=== PATIENT | male | born 1970 | race Caucasian/White ===

== ENCOUNTER 2018-06-24 11:32 | Emergency (ER) | payer BC, OTHER ==
[2018-06-24] MEDS ORDERED: predniSONE 20 MG TAB ONE (12:28)
[2018-06-24] MEDS ORDERED: DIPHENHYDRAMINE 25 MG TAB/CAP ONE (12:28)
--- NOTE | 2018-06-24 12:34 | EDPHYS ---
Physician Documentation [facility] Name: Francisco Zamora Age: 48 yrs Sex: Male : 1970 Arrival Date: 06/24/2018 Time: 11:35 Bed 11 Private MD: Delta Can ED Physician Dane Sawant HPI: 06/24 14:19 This 48 yrs old Male presents to ER via Ambulatory with complaints of Insect gs Bite. 14:19 the patient presents with a swollen area of the right tricep. Description: The affected gs area is approximately 5 cm(s), erythematous, raised. Onset: The symptoms/episode began/occurred gradually, just prior to arrival. Possible cause(s): bee sting, insect sting. Associated signs and symptoms: Pertinent positives: itching,burning. Modifying factors: the symptoms are alleviated by nothing, the symptoms are aggravated by nothing. Severity of symptoms: At their worst the symptoms were moderate, in the emergency department the symptoms are unchanged. The patient has not experienced similar symptoms in the past. Historical: - Allergies: 11:44 No Known Allergies; hb - Home Meds: 11:44 lisinopril 10 mg Oral tab 1 tab once daily [Active]; hb - PMHx: 11:44 Hypertension; hb - PSHx: 11:44 Appendectomy; hb - Immunization history:: Adult Immunizations up to date. - Social history:: Smoking status: Patient/guardian denies using tobacco. - Ebola Screening: : No symptoms or risks identified at this time. ROS: 14:19 All other systems are negative. gs Exam: 14:19 Head/Face: Normocephalic, atraumatic. Chest/axilla: Normal chest wall appearance and gs motion. Nontender with no deformity. No lesions are appreciated. Cardiovascular: Regular rate and rhythm with a normal S1 and S2. No gallops, murmurs, or rubs. Normal PMI, no JVD. No pulse deficits. Respiratory: Lungs have equal breath sounds bilaterally, clear to auscultation and percussion. No rales, rhonchi or wheezes noted. No increased work of breathing, no retractions or nasal flaring. Abdomen/GI: Soft, non-tender, with normal bowel sounds. No distension or tympany. No guarding or rebound. No evidence of tenderness throughout. Back: No spinal tenderness. No costovertebral tenderness. Full range of motion. MS/ Extremity: Pulses equal, no cyanosis. Neurovascular intact. Full, normal range of motion. Neuro: Awake and alert, GCS 15, oriented to person, place, time, and situation. Cranial nerves II-XII grossly intact. Motor strength 5/5 in all extremities. Sensory grossly intact. Cerebellar exam normal. Normal gait. 14:19 Constitutional: The patient appears in no acute distress, alert, awake. 14:19 Skin: lesion(s), noted, and can be described as erythematous, raised, located on the right tricep. Vital Signs: 11:44 BP 122 / 88; Pulse 67; Resp 16; Temp 98; Pulse Ox 96% on R/A; Weight 112.04 kg; Height hb 5 ft. 11 in. (180.34 cm); Pain 5/10; 11:44 Body Mass Index 34.45 (112.04 kg, 180.34 cm) hb MDM: 12:11 Patient medically screened. 14:19 Differential diagnosis: insect bite. Data reviewed: vital signs, nurses notes. Counseling: I had a detailed discussion with the patient and/or guardian regarding: the historical points, exam findings, and any diagnostic results supporting the discharge/admit diagnosis, the need for outpatient follow up. Response to treatment: the patient's symptoms have mildly improved after treatment. Administered Medications: 12:18 Drug: predniSONE 40 mg Route: PO; 12:18 Drug: Benadryl 25 mg Route: PO; Disposition: 06/24/18 12:33 Discharged to Home. Impression: Insect bite (nonvenomous) of right upper arm. - Condition is Stable. - Prescriptions for Zyrtec 10 mg Oral Tablet - take 1 tablet by ORAL route once daily As needed; 20 tablet. Triamcinolone Acetonide 0.5 % Topical Cream - apply 1 application by TOPICAL route 2 times per day As needed; 1 tube. - Medication Reconciliation Form, Thank You Letter, Antibiotic Education, Prescription Opioid Use form. - Follow up: Private Physician; When: 2 - 3 days; Reason: Re-evaluation by your physician. Signatures: Shyam Conway RN RN sg Adelina Russo RN RN Dane Sawant MD MD Corrections: (The following items were deleted from the chart) 12:43 12:33 06/24/2018 12:33 Discharged to Home. Impression: Insect bite (nonvenomous) of hb right upper arm. Condition is Stable. Forms are Medication Reconciliation Form, Thank You Letter, Antibiotic Education, Prescription Opioid Use. Follow up: Private Physician; When: 2 - 3 days; Reason: Re-evaluation by your physician. gs
--- NOTE | 2018-06-24 12:34 | ER ---
Nurse's Notes [facility] Name: Francisco Zamora Age: 48 yrs Sex: Male : 1970 Arrival Date: 06/24/2018 Time: 11:35 Bed 11 Private MD: Delta Can Diagnosis: Insect bite (nonvenomous) of right upper arm Presentation: 06/24 11:43 Presenting complaint: Stung bu unknown insect on right upper arm approx 30 minutes ago, hb c/o itching and burning at site. Transition of care: patient was not received from another setting of care. Onset of symptoms was June 24, 2018. Risk Assessment: Do you want to hurt yourself or someone else? Patient reports no desire to harm self or others. Initial Sepsis Screen: Does the patient meet any 2 criteria? No. Patient's initial sepsis screen is negative. Does the patient have a suspected source of infection? No. Patient's initial sepsis screen is negative. Care prior to arrival: None. 11:43 Method Of Arrival: Ambulatory hb 11:43 Acuity: THOMAS 4 hb Historical: - Allergies: 11:44 No Known Allergies; hb - Home Meds: 11:44 lisinopril 10 mg Oral tab 1 tab once daily [Active]; hb - PMHx: 11:44 Hypertension; hb - PSHx: 11:44 Appendectomy; hb - Immunization history:: Adult Immunizations up to date. - Social history:: Smoking status: Patient/guardian denies using tobacco. - Ebola Screening: : No symptoms or risks identified at this time. Screenin:10 Abuse screen: Denies threats or abuse. Denies injuries from another. Nutritional sg screening: No deficits noted. Tuberculosis screening: No symptoms or risk factors identified. Never had TB. Fall Risk None identified. Assessment: 12:18 General: Appears in no apparent distress. well groomed, well developed, well nourished, sg Behavior is calm, cooperative, appropriate for age. Pain: Complains of pain in right bicep Quality of pain is described as aching, itching. Neuro: Level of Consciousness is awake, alert, obeys commands, Oriented to person, place, time, Air Pollution Analyst are equal bilaterally Moves all extremities. Full function. Cardiovascular: Capillary refill is brisk in bilateral fingers Patient's skin is warm and dry. Chest pain is denied. Respiratory: Airway is patent Respiratory effort is even, unlabored, Respiratory pattern is regular, symmetrical. GI: Abdomen is round non-distended. : No signs and/or symptoms were reported regarding the genitourinary system. EENT: No signs and/or symptoms were reported regarding the EENT system. Derm: Skin is intact, is healthy with good turgor, Skin is pink, warm \T\ dry. Skin temperature is warm Reports itching. Musculoskeletal: No signs and/or symptoms reported regarding the musculoskeletal system. Vital Signs: 11:44 BP 122 / 88; Pulse 67; Resp 16; Temp 98; Pulse Ox 96% on R/A; Weight 112.04 kg; Height hb 5 ft. 11 in. (180.34 cm); Pain 5/10; 11:44 Body Mass Index 34.45 (112.04 kg, 180.34 cm) hb ED Course: 11:35 Patient arrived in ED. tw3 11:36 Delta Can MD is Private Physician. tw3 11:44 Triage completed. hb 11:44 Arm band placed on. hb 11:49 Dane Sawant MD is Attending Physician. gs 12:00 Patient has correct armband on for positive identification. Bed in low position. Call hb light in reach. Side rails up X2. Pulse ox on. NIBP on. Warm blanket given. Head of bed elevated. 12:40 No provider procedures requiring assistance completed. Patient did not have IV access hb during this emergency room visit. Administered Medications: 12:18 Drug: predniSONE 40 mg Route: PO; sg 12:18 Drug: Benadryl 25 mg Route: PO; sg Outcome: 12:33 Discharge ordered by . gs 12:40 Discharged to home ambulatory, with friend. hb 12:40 Condition: good 12:40 Discharge instructions given to patient, Instructed on discharge instructions, follow up and referral plans. no drinking with medication, no driving heavy equipment, medication usage, safety practices, Demonstrated understanding of instructions, follow-up care, medications, Prescriptions given X 2. 12:43 Patient left the ED. hb Signatures: Shyam Conway RN RN Adelina Russo RN RN Jerrell, Tia tw3 Dane Sawant MD MD
== END 2018-06-24 12:43 | disposition home or self-care (01) ==
LOC: ER 11:32
DX: S40.861A Insect bite (nonvenomous) of right upper arm, initial encounter (principal); I10 Essential (primary) hypertension
CPT/HCPCS: 99283; J7512

== ENCOUNTER 2019-03-18 19:04 | Emergency (ER) | payer BC ==
--- NOTE | 2019-03-18 23:17 | EDPHYS ---
Physician Documentation [facility] Name: Francisco Zamora Age: 48 yrs Sex: Male : 1970 Arrival Date: 03/18/2019 Time: 19:11 Bed 28 Private MD: ED Physician Per Silva HPI: 03/19 04:31 This 48 yrs old Male presents to ER via Ambulatory with complaints of Cough, tw4 Fever. 04:31 The patient or guardian reports cough. Onset: The symptoms/episode began/occurred 3 tw4 day(s) ago. Severity of symptoms: At their worst the symptoms were moderate, in the emergency department the symptoms are unchanged. Modifying factors: The symptoms are alleviated by nothing, the symptoms are aggravated by nothing. Associated signs and symptoms: The patient has no apparent associated signs or symptoms. The patient has not experienced similar symptoms in the past. 04:31 The patient has not recently seen a physician. pt recently traveled to [place] in the tw4 last 14 days but did not have known contact with individuals with coronavirus. Will follow protocol for coronoavirus . Historical: - Allergies: 03/18 19:18 No Known Allergies; aj1 - Home Meds: 19:18 lisinopril 10 mg Oral tab 1 tab once daily [Active]; aj1 - PMHx: 19:18 Hypertension; aj1 - Immunization history:: Flu vaccine is not up to date. - Coronavirus screen:: The patient HAS traveled to [place], [place], or [place] in the past 14 days. The patient DOES HAVE a fever and/or cough. Mask placed on patient and transported to negative pressure isolation room. The patient has NOT had contact with known/suspected case of Coronavirus?. - Social history:: Smoking status: Patient/guardian denies using tobacco. - Ebola Screening: : Patient denies travel to an Ebola-affected area in the 21 days before illness onset. ROS: 03/19 04:31 Eyes: Negative for injury, pain, redness, and discharge, ENT: Negative for injury, tw4 pain, and discharge. Constitutional: Positive for fever, Negative for body aches, chills, fatigue, malaise, poor PO intake, weight loss. Respiratory: Positive for cough, Negative for dyspnea on exertion, hemoptysis, orthopnea, pleurisy, shortness of breath, sputum production. Exam: 04:31 Constitutional: This is a well developed, well nourished patient who is awake, alert, tw4 and in no acute distress. Head/Face: Normocephalic, atraumatic. Chest/axilla: Normal chest wall appearance and motion. Nontender with no deformity. No lesions are appreciated. Cardiovascular: Regular rate and rhythm with a normal S1 and S2. No gallops, murmurs, or rubs. Normal PMI, no JVD. No pulse deficits. Respiratory: Lungs have equal breath sounds bilaterally, clear to auscultation and percussion. No rales, rhonchi or wheezes noted. No increased work of breathing, no retractions or nasal flaring. Abdomen/GI: Soft, non-tender, with normal bowel sounds. No distension or tympany. No guarding or rebound. No evidence of tenderness throughout. Back: No spinal tenderness. No costovertebral tenderness. Full range of motion. MS/ Extremity: Pulses equal, no cyanosis. Neurovascular intact. Full, normal range of motion. Neuro: Awake and alert, GCS 15, oriented to person, place, time, and situation. Cranial nerves II-XII grossly intact. Motor strength 5/5 in all extremities. Sensory grossly intact. Cerebellar exam normal. Normal gait. Vital Signs: 03/18 19:18 BP 121 / 81; Pulse 88; Resp 18; Temp 99.2; Pulse Ox 95% on R/A; Weight 90.72 kg (R); aj1 Height 6 ft. 1 in. (185.42 cm) (R); Pain 0/10; 22:13 BP 111 / 74; Pulse 89; Resp 20; Temp 100.1(O); Pulse Ox 97% on R/A; Pain 3/10; ls4 23:24 BP 116 / 70; Pulse 88; Resp 20; Temp 99.9; Pulse Ox 97% on R/A; Pain 3/10; ls4 19:18 Body Mass Index 26.39 (90.72 kg, 185.42 cm) aj1 MDM: 19:37 Patient medically screened. tw4 03/19 04:38 Data reviewed: vital signs, nurses notes. Data reviewed: lab test result(s), Flu: tw4 negative. Data interpreted: Pulse oximetry: Interpretation:. Counseling: I had a detailed discussion with the patient and/or guardian regarding: the historical points, exam findings, and any diagnostic results supporting the discharge/admit diagnosis, lab results, radiology results. 04:41 Differential Diagnosis: Bronchitis Influenza Upper Respiratory Infection Pharyngitis tw4 Viral Syndrome. Special discussion: I discussed with the patient/guardian in detail that at this point there is no indication for admission to the hospital. It is understood, however, that if the symptoms persist or worsen the patient needs to return immediately for re-evaluation. ED course: PT DID NOT MEET CRITERIA CORONAVIRUS TESTING. 03/18 19:38 Order name: Flu tw4 03/18 19:38 Order name: Strep tw4 03/18 20:33 Order name: Throat Culture EDMS 03/18 21:06 Order name: CXR XRAY tw4 Administered Medications: No medications were administered Disposition: 03/18/19 23:16 Discharged to Home. Impression: Acute upper respiratory infection, unspecified. - Condition is Stable. - Discharge Instructions: Viral Respiratory Infection, Cool Mist Vaporizer, Viral Respiratory Infection, [id number]. - Prescriptions for Ibuprofen 800 mg Oral Tablet - take 1 tablet by ORAL route every 8 hours As needed take with food; 30 tablet. Tessalon Perles 100 mg Oral Capsule - take 1 capsule by ORAL route every 8 hours As needed; 15 capsule. Albuterol Sulfate 90 mcg/actuation - inhale 1-2 puff by INHALATION route every 4-6 hours; 1 Inhaler. Guaifenesin AC 10- 100 mg/5 mL Oral Liquid - take 10 milliliter by ORAL route every 4 hours As needed; 240 milliliter. - Medication Reconciliation Form, Thank You Letter, Antibiotic Education, Prescription Opioid Use form. - Follow up: Private Physician; When: Upon discharge from the Emergency Department; Reason: Recheck today's complaints, Continuance of care, Re-evaluation by your physician. - Problem is new. - Symptoms have improved. Signatures: Dispatcher [employer] Sheryl Monreal, REBECCA RN aj1 Per Silva MD MD tw4 Maria Ines Dale RN RN ls4 Corrections: (The following items were deleted from the chart) 03/18 23:24 23:16 03/18/2019 23:16 Discharged to Home. Impression: Acute upper respiratory ls4 infection, unspecified. Condition is Stable. Forms are Medication Reconciliation Form, Thank You Letter, Antibiotic Education, Prescription Opioid Use. Follow up: Private Physician; When: Upon discharge from the Emergency Department; Reason: Recheck today's complaints, Continuance of care, Re-evaluation by your physician. Problem is new. Symptoms have improved. tw4
--- NOTE | 2019-03-18 23:17 | ER ---
Nurse's Notes [facility] Name: Francisco Zamora Age: 48 yrs Sex: Male : 1970 Arrival Date: 03/18/2019 Time: 19:11 Bed 28 Private MD: Diagnosis: Acute upper respiratory infection, unspecified Presentation: 03/18 19:17 Presenting complaint: Patient states: Cough, congestion, body aches, and fever for the aj1 past 2 days. Denies chest pain, shortness of breath. Transition of care: patient was not received from another setting of care. Onset of symptoms was March 2019. Risk Assessment: Do you want to hurt yourself or someone else? Patient reports no desire to harm self or others. Initial Sepsis Screen: Does the patient meet any 2 criteria? No. Patient's initial sepsis screen is negative. Does the patient have a suspected source of infection? Yes: Productive cough/pneumonia. Care prior to arrival: None. 19:17 Method Of Arrival: Ambulatory aj1 19:17 Acuity: THOMAS 4 aj1 Triage Assessment: 19:18 General: Appears in no apparent distress. comfortable, Behavior is calm, cooperative, aj1 appropriate for age. Pain: Denies pain. Neuro: Level of Consciousness is awake, alert, obeys commands. Cardiovascular: Patient's skin is warm and dry. Respiratory: Airway is patent Respiratory effort is even, unlabored, Respiratory pattern is regular, symmetrical. Historical: - Allergies: 19:18 No Known Allergies; aj1 - Home Meds: 19:18 lisinopril 10 mg Oral tab 1 tab once daily [Active]; aj1 - PMHx: 19:18 Hypertension; aj1 - Immunization history:: Flu vaccine is not up to date. - Coronavirus screen:: The patient HAS traveled to [place], [place], or [place] in the past 14 days. The patient DOES HAVE a fever and/or cough. Mask placed on patient and transported to negative pressure isolation room. The patient has NOT had contact with known/suspected case of Coronavirus?. - Social history:: Smoking status: Patient/guardian denies using tobacco. - Ebola Screening: : Patient denies travel to an Ebola-affected area in the 21 days before illness onset. Screenin:10 Abuse screen: Denies threats or abuse. Denies injuries from another. Nutritional ls4 screening: No deficits noted. Tuberculosis screening: No symptoms or risk factors identified. Fall Risk None identified. Assessment: 19:20 General: Appears in no apparent distress. comfortable, Behavior is calm, cooperative, ls4 Reports fever for 12-24 hours, COUGH, DENIES SORE THROAT. Neuro: No deficits noted. Cardiovascular: No deficits noted. Respiratory: Reports cough that is non-productive, dry, hacking, persistent Breath sounds are clear bilaterally. the patient has moderate shortness of breath. GI: No deficits noted. : No deficits noted. EENT: No deficits noted. Throat is clear. Derm: Skin is intact, Skin is dry, Skin is pink, warm \T\ dry. Skin temperature is. Musculoskeletal: No deficits noted. 21:24 Reassessment: Patient appears in no apparent distress at this time. Patient and/or ls4 family updated on plan of care and expected duration. Pain level reassessed. Patient is alert, oriented x 3, equal unlabored respirations, skin warm/dry/pink. 22:14 Reassessment: Patient appears in no apparent distress at this time. No changes from ls4 previously documented assessment. Patient and/or family updated on plan of care and expected duration. Pain level reassessed. Patient is alert, oriented x 3, equal unlabored respirations, skin warm/dry/pink. 23:06 Reassessment: Patient appears in no apparent distress at this time. No changes from ls4 previously documented assessment. Patient and/or family updated on plan of care and expected duration. Pain level reassessed. Patient is alert, oriented x 3, equal unlabored respirations, skin warm/dry/pink. Vital Signs: 19:18 BP 121 / 81; Pulse 88; Resp 18; Temp 99.2; Pulse Ox 95% on R/A; Weight 90.72 kg (R); aj1 Height 6 ft. 1 in. (185.42 cm) (R); Pain 0/10; 22:13 BP 111 / 74; Pulse 89; Resp 20; Temp 100.1(O); Pulse Ox 97% on R/A; Pain 3/10; ls4 23:24 BP 116 / 70; Pulse 88; Resp 20; Temp 99.9; Pulse Ox 97% on R/A; Pain 3/10; ls4 19:18 Body Mass Index 26.39 (90.72 kg, 185.42 cm) aj1 ED Course: 19:11 Patient arrived in ED. cf2 19:18 Triage completed. aj1 19:18 Arm band placed on Patient placed in an exam room. aj1 19:23 Maria Ines Dale, RN is Primary Nurse. ls4 19:37 Per Silva MD is Attending Physician. tw4 20:10 Patient has correct armband on for positive identification. Bed in low position. Call ls4 light in reach. Side rails up X 1. PT PLACED IN MASK, SPOUSE PLACED IN MASK, NEGATIVE AIR PRESSURE ROOM UTILIZED WITH AIR FOOTWEAR SALES ASSOCIATE ON. DROPLET PRECAUTIONS INITIATED, SIGN ON DOOR. Pulse ox on. NIBP on. Warm blanket given. Verbal reassurance given. 20:12 No provider procedures requiring assistance completed. ls4 20:30 Flu and/or RSV swab sent to lab. Strep swab sent to lab. ls4 21:26 Notified Charge Nurse of PT RETURNED FROM VISITING SON ON [facility] IN [facility]. ls4 PT STATES NO ONE HE WAS IN CONTACT WAS SICK. PT SON IS A [employer]OCK [employer] IN THE [employer]. HAD A VIRAL INFECTION WHEN HE ARRIVED HOME AND HIS MOTHER HAS PNEUMONIA AT THIS TIME. NURSING MASSOTHERAPIST AND CHARGE NURSE FOLLOWED PROTOCOL REPORTING TO CDC. ALL CLINICAL STAFF DONNED AND REMOVED PPE FOR DROPLET PRECAUTIONS ACCORDING TO PROTOCOL. HAND HYGIENE PERFORMED BY ALL STAFF IN CONTACT WITH PT PER PROTOCOL. NEGATIVE AIR PRESSURE UTILIZED FOR THIS PATIENT . 22:26 CXR XRAY In Process Unspecified. EDMS 23:24 Patient did not have IV access during this emergency room visit. ls4 Administered Medications: No medications were administered Outcome: 23:16 Discharge ordered by . tw4 23:24 Patient left the ED. ls4 23:24 Discharged to home ambulatory, with family. ls4 23:24 Condition: good 23:24 Discharge instructions given to patient, family, Instructed on discharge instructions, follow up and referral plans. medication usage, safety practices, Demonstrated understanding of instructions, follow-up care, medications, Prescriptions given X 4. Signatures: Dispatcher [employer] EDMT Sheryl Antonio, RN RN aj1 Per Silva MD MD tw4 Maria Ines Dale RN RN ls4 Soumya Tobias cf2
[2019-03-18 23:33] VITALS: BP 111/74; TEMP 100.1; O2SAT 97
--- NOTE | 2019-03-19 07:55 | RAD REPORT ---
EXAM DESCRIPTION: Kajal Single View03/18/2019 10:01 pm CLINICAL HISTORY: Cough COMPARISON: 2014 FINDINGS: The lungs appear clear of acute infiltrate. The heart is normal size IMPRESSION: No acute abnormalities displayed
== END 2019-03-18 23:24 | disposition home or self-care (01) ==
LOC: ER 19:04
DX: J06.9 Acute upper respiratory infection, unspecified (principal); I10 Essential (primary) hypertension
CPT/HCPCS: 71045; 87070; 87081; 87804; 99284